=== PATIENT | male | born 1945 | race Caucasian/White ===

== ENCOUNTER 2016-10-01 13:15 | Inpatient (IN) | payer MEDICARE ==
--- NOTE | ~2016-10-01 | HP ---
Unit #: [id number] #: [id number] Patient: VAZQUEZ BRADLEY [id number] [address] [place], [place] [address] [id number] [place] MR#: [id number] NAME: VAZQUEZ BRADLEY. ROOM: 214 Age: 71 Sex: M Admission Date: 10/01/2016 : 1945 Attending Physician: Aries Reina M.D. Primary Care Physician: Jayshree Vela M.D. HISTORY AND PHYSICAL DATE Date I saw the patient is October 02, 2016. REASON FOR ADMISSION Generalized weakness. HISTORY OF PRESENT ILLNESS This is a pleasant 71-year-old male with past medical history significant for morbid obesity, prostate cancer complicated with multiple abdominal problems who presented to the hospital as a direct admission from the oncology office after patient was feeling sick and ill for the last two days. Patient stated that he has been feeling progressively fatigued and weak for the last two days. He had some chills and some dysuria but it was not as bad as many years ago when he was diagnosed with UTI. Patient denied any nausea, vomiting, or diarrhea. No cough. PAST MEDICAL HISTORY 1. COPD. 2. Asthma. 3. History of bladder cancer. PAST SURGICAL HISTORY 1. Urostomy. 2. Left reverse shoulder arthroplasty. FAMILY HISTORY Hypertension. SOCIAL HISTORY Patient quit smoking a long time ago. No history of alcohol or drug abuse. ALLERGIES No known drug allergy. REVIEW OF SYSTEMS A 12-point review of system was obtained and was negative except for what was mentioned in HPI. PHYSICAL EXAMINATION GENERAL: The patient is in no acute distress. HEENT: Atraumatic, normocephalic. PERRLA. EOMI. NECK: Supple. No JVD. No lymphadenopathy. CHEST: Very few wheezing but no rhonchi. Unit #: [id number] #: [id number] Patient: VAZQUEZ BRADLEY HEART: S1, S2. No murmur, gallops, or rubs. ABDOMEN: Soft, nontender. Bowel sounds are positive. No hepatosplenomegaly. EXTREMITIES: No edema or cyanosis. SKIN: No rashes. CENTRAL NERVOUS SYSTEM: Awake, alert. Oriented x3. No focal motor/sensory deficits. DIAGNOSTIC STUDIES LABORATORY: Lactic acid 1.9. Creatinine 2.5, sodium 134. White blood count 17, hemoglobin 8. ASSESSMENT 1. Urinary tract infection. 2. Generalized fatigue. 3. Anemia, chronic. 4. Leukocytosis. 5. Hyponatremia. 6. Acute on chronic kidney disease. 7. Morbid obesity. 8. Hypertension. 9. History of prostate cancer. PLAN 1. Will continue patient on IV hydration. Lactic acid is normal. 2. Rocephin pending culture. 3. Urology consult per patient request. 4. Pain management. 5. Deep venous thrombosis prophylaxis. Dictated by Kimberley Alba TD: 10/02/2016 12:12 JOB #: [id number] HISTORY AND PHYSICAL Page 1 of 1 X WILLY ROMERO MD X HISTORY AND PHYSICAL
--- NOTE | ~2016-10-01 | CO ---
Unit #: [id number] #: [id number] Patient: VAZQUEZ BRADLEY [id number] [address] [address] [id number] I MR#: [id number] NAME: VAZQUEZ BRADLEY. ROOM: 214 Age: 71 Sex: M Admission Date: 10/01/2016 : 1945 Attending Physician: Aries Reina M.D. Primary Care Physician: Jayshree Vela M.D. Requesting Physician: Aries Reina M.D. CONSULTATION REPORT CHIEF COMPLAINT Weakness. REASON FOR CONSULTATION History of prostate cancer, recurrent urinary tract infections and weakness. HISTORY OF PRESENT ILLNESS The patient is a 71-year-old male who is well known to me. He underwent brachytherapy for prostate cancer in the distant past. He also underwent a transurethral resection of his prostate and developed severe incontinence and prostatic stones. He ultimately underwent a ileal conduit urinary diversion. He did not undergo a cystectomy. The patient presents with a three to four-day history of increasing weakness. He is not having any flank pain. He is having difficulty standing. He states that his urine has been more cloudy through his urostomy. PAST MEDICAL HISTORY 1. Prostate cancer. 2. Asthma. 3. Chronic obstructive pulmonary disease. PAST SURGICAL HISTORY 1. Ileal conduit urinary diversion. 2. Transurethral resection of prostate. 3. Gastric bypass. 4. Shoulder replacement. 5. Resection of abdominal wall. SOCIAL HISTORY Negative for alcohol. Previous history of tobacco use. ALLERGIES Documented in the chart. CURRENT MEDICATIONS Documented in the chart. REVIEW OF SYSTEMS Twelve point review of systems was performed and was positive for weakness and cloudy urine. Negative for diarrhea. Negative for fevers. Negative for flank pain. PHYSICAL EXAMINATION Unit #: [id number] #: [id number] Patient: VAZQUEZ BRADLEY GENERAL: Well-developed white male in no acute distress. VITALS: Temperature 97.7, blood pressure 123/77, pulse 83, respiratory rate 18. HEENT: Normocephalic, atraumatic. Extraocular muscles intact. NECK: Supple. No lymphadenopathy. No nuchal rigidity. CHEST: Unlabored respirations with symmetric chest rise. ABDOMEN: Soft, nontender and nondistended. He has a urostomy in his right lower quadrant which is pink and draining clear urine. EXTREMITIES: Gait is normal. Pulse is regular rate and rhythm radially. No clubbing, cyanosis or edema. DIAGNOSTIC STUDIES IMAGING: None. LABORATORY: Creatinine 2.5, baseline is 1.9 to 2.3, white blood cell count 17,000. Urinalysis was not performed. ASSESSMENT/PLAN Weakness and history of prostate cancer. The patient is being treated empirically for possible urinary tract infection. His urine culture is pending. Blood cultures are pending as well. Will continue the Rocephin. Will check a CT of his chest, abdomen and pelvis to evaluate for possible causes for his weakness and leukocytosis. We appreciate the opportunity in his care. Dictated by... Kameron Avelar M.D. GUS/gz TD: 10/02/2016 13:08 JOB #: [id number] CONSULTATION REPORT Page 1 of 1 X Kameron Avelar MD X CONSULTATION REPORT
--- NOTE | ~2016-10-01 | CR72 ---
[facility] A Service of [facility] & [facility] RADIOLOGY TEXT RESULTS PATIENT: VAZQUEZ BRADLEY LOCATION: A : [birth year] UNIT #: [id number] AGE: [address]: Aries Reina MD SEX: M ORDER DR: [id number] [facility] [address] [facility]. [place], [place] [address] [id number] I MR#: [id number] Acc #: [id number] NAME: VAZQUEZ BRADLEY. : 1945 SEX: M STUDY DATE/TIME: 10/06/2016 21:18 UNIT: [facility] ROOM: [facility] STUDY DESCRIPTION: CR Chest Single View Portable Attending Physician: Aries Reina M.D. Ordering Physician: Aries Reina M.D. Primary Care Physician: Jayshree Vela M.D. MEDICAL IMAGING REPORT This report is preliminary unless electronic signature is present EXAM Portable chest HISTORY Short of air. Weakness for 5 days. FINDINGS Moderate elevation of the left hemidiaphragm is similar to 12/21/2012. Mild cardiac enlargement is accentuated by low lung volumes. Pulmonary vascularity is normal. Calcified mediastinal and right hilar nodes. Mild linear atelectasis or scarring in the left base. Bilateral shoulder prostheses. IMPRESSION No acute findings. Moderate chronic elevation of the left hemidiaphragm. No evidence of active disease in the lungs. Dictated by... Santana Witt M.D. THIS IS AN ELECTRONICALLY VERIFIED REPORT Santana Witt M.D. at 10/06/2016 11:18 PM DFL/pcl TD: 10/06/2016 23:02 JOB #: [id number] MEDICAL IMAGING REPORT Page 1 of 1 COPY
--- NOTE | ~2016-10-01 | CR4 ---
[facility] A Service [facility] RADIOLOGY TEXT RESULTS PATIENT: VAZQUEZ BRADLEY LOCATION: CICCU3 CICCU3-23 : [birth year] UNIT #: [id number] AGE: [address]: Aries Reina MD SEX: M ORDER DR: [id number] [facility] [address] [facility]. [place], [place] [address] [id number] I MR#: [id number] Acc #: [id number] NAME: VAZQUEZ BRADLEY. : 1945 SEX: M STUDY DATE/TIME: 10/04/2016 19:51 UNIT: C2A ROOM: [facility] STUDY DESCRIPTION: CR Abdomen Flat Upright or Dec Attending Physician: Aries Reina M.D. Ordering Physician: Farrukh Colby M.D. Primary Care Physician: Jayshree Vela M.D. MEDICAL IMAGING REPORT This report is preliminary unless electronic signature is present EXAM Flat and upright views of the abdomen INDICATION Follow up renal calculus. PROCEDURE Supine and upright views of the abdomen. COMPARISON CT from 10/02/2016. FINDINGS Previously demonstrated right UPJ stone is not seen. Moderate colonic stool. No free air. Nonobstructed pattern. Phlebolith in the right hemipelvis. There is stable diastasis of the pubic symphysis. IMPRESSION 1. The right UPJ stone is not seen. 2. Other findings as above. Dictated by... Saurabh Oliver M.D. THIS IS AN ELECTRONICALLY VERIFIED REPORT Saurabh Oliver M.D. at 10/08/2016 7:05 AM DESEAND/radha TD: 10/05/2016 08:36 JOB #: [id number] MEDICAL IMAGING REPORT [facility] A [facility] RADIOLOGY TEXT RESULTS PATIENT: VAZQUEZ BRADLEY LOCATION: CICCUDa CICCU3-23 : [birth year] UNIT #: [id number] AGE: [address]: Aries Reina MD SEX: M ORDER DR: Page 1 of 1 COPY
--- NOTE | ~2016-10-01 | XA157 ---
[facility] A Service of [facility] & [facility] RADIOLOGY TEXT RESULTS PATIENT: VAZQUEZ BRADLEY LOCATION: [address] : [birth year] UNIT #: [id number] AGE: [address]: Aries Reina MD SEX: M ORDER DR: [id number] [place] [id number] [facility]. [place], [place] [address] [id number] I MR#: [id number] Acc #: [id number] NAME: VAZQUEZ BRADLEY. : 1945 SEX: M STUDY DATE/TIME: 10/06/2016 10:10 UNIT: CICCU3 ROOM: [facility] STUDY DESCRIPTION: XA Nephrostogram Attending Physician: Aries Reina M.D. Ordering Physician: Jared Moody M.D. Primary Care Physician: Jayshree Vela M.D. MEDICAL IMAGING REPORT This report is preliminary unless electronic signature is present EXAM Nephrostomy tube placement. INDICATION The patient is a 71-year-old man with an obstructing stone at the right ureteropelvic junction which was identified on a prior study from October 02, 2016. He has been referred for nephrostomy tube placement PROCEDURE The procedure was explained to the patient including risks, benefits, potential complications, potential for alternative forms of treatment. Informed consent was obtained and prior to initiating the procedure, a formal time-out procedure was performed. Using all elements of maximal sterile barrier technique, including hand hygiene, caps, sterile gowns, and gloves and masks, the back was prepped with 2% chlorhexidine for cutaneous antisepsis and covered with a large sterile sheet. Real time ultrasound guidance was used to localize the right kidney which of note does not appear particularly hydronephrotic. A hard copy ultrasound image was obtained. After local anesthesia with 1% Xylocaine, I made several attempts to access the right renal collecting system under direct sterile sonographic guidance. It did appear that I was entering a mildly dilated ashley. I was only able to aspirate a small amount of very thick, purulent appearing material, which I suspect reflected infection material within the patient's collecting system. However, when contrast was injected, there was no opacification of a normal appearing collecting system. I did attempt to advance a wire through the needle but only a small amount could be advanced before it coiled back on itself. I made several more attempts to access the patient's kidney and again, was never able to demonstrate a normal appearing collecting system. At this point, the procedure was terminated. We will obtain a CT scan for further evaluation of the patient's anatomy with further management pending this study. This was discussed with Dr. SHELTON. [facility] A Service of [facility] RADIOLOGY TEXT RESULTS PATIENT: VAZQUEZ BRADLEY LOCATION: [address] : [birth year] UNIT #: [id number] AGE: [address]: Aries Reina MD SEX: M ORDER DR: Heidy at the termination of the procedure. The patient did receive conscious sedation consisting of 5 mg of Versed and 175 mcg of fentanyl and continuous monitoring was provided for a total of 80 minutes by IVR nurse. Total fluoroscopy time was 3.4 minutes and a single fluoroscopic image was obtained. IMPRESSION Unsuccessful attempted right nephrostomy tube placement. Upon accessing what I thought was probably a dilated ashley under direct sterile sonographic guidance, I was able to aspirate some thick purulent-appearing material but contrast injection did not show definitive opacification of a collecting system. I am uncertain if I truly accessed the patient's collecting system or if perhaps the patient has a perinephric infected fluid collection. CT of the abdomen and pelvis has been ordered to allow for further planing. Ultrasound and fluoroscopy were used during this procedure and permanent images were saved. Dictated by... Sangeetha Farah M.D. THIS IS AN ELECTRONICALLY VERIFIED REPORT Sangeetha Farah M.D. at 10/07/2016 5:21 PM JAVIER/olegario TD: 10/07/2016 09:42 JOB #: [id number] MEDICAL IMAGING REPORT Page 1 of 1 COPY
--- NOTE | ~2016-10-01 | CT4 ---
[facility] A Service of [facility] & [facility] RADIOLOGY TEXT RESULTS PATIENT: VAZQUEZ BRADLEY LOCATION: [facility] CICCU3-23 : [birth year] UNIT #: [id number] AGE: [address]: Aries Reina MD SEX: M ORDER DR: [id number] [facility] [address] [facility]. [place], [place] [address] [id number] I MR#: [id number] Acc #: [id number] NAME: VAZQUEZ BRADLEY. : 1945 SEX: M STUDY DATE/TIME: 10/06/2016 15:54 UNIT: C2A ROOM: 214 STUDY DESCRIPTION: CT Abd and Pelv Wo Cont Attending Physician: Aries Reina M.D. Ordering Physician: Sangeetha Farah M.D. Primary Care Physician: Jayshree Vela M.D. MEDICAL IMAGING REPORT This report is preliminary unless electronic signature is present EXAM CT of the abdomen and pelvis without contrast. INDICATION This patient is a 71-year-old man who was recently noted to have mild right-sided hydronephrosis which was secondary to an obstructing stone at the right ureteropelvic junction. He underwent attempted nephrostomy tube placement today. However, when the lower pole was accessed, there was spontaneous drainage of purulent appearing urine but injection of contrast did not show a normal appearing collecting system. This exam was requested to reassess the patient's anatomy and assess for possible perinephric collection. TECHNIQUE Axial CT imaging was obtained from the dome of the diaphragm through the symphysis pubis. No oral or intravenous contrast material was administered. This CT exam was performed with one or more of the following radiation dose reduction techniques: automatic exposure control, adjustment of mA and/or kV according to patient size, and iterative reconstruction. FINDINGS Images through the lung bases demonstrate some bibasilar atelectasis. There is a small hiatal hernia. Proximal small bowel is within normal limits as are the adrenal glands and spleen. Pancreas is mildly atrophic. No focal hepatic lesions are identified, and the patient does have cholelithiasis. This patient does appear to have contrast material within the right renal collecting system with no extravasated contrast material seen around the kidney, although, the patient does have some foci of gas in keeping with recent access attempts. Left kidney again has multiple areas of cortical thinning likely reflecting sequela of prior insults. There is a right lower quadrant ileal conduit with a fat-containing parastomal hernia noted. The patient also has a right paramedian ventral STS. [facility] A Service of [facility] RADIOLOGY TEXT RESULTS PATIENT: VAZQUEZ BRADLEY LOCATION: [facility] CICCU3-23 : [birth year] UNIT #: [id number] AGE: [address]: Aries Reina MD SEX: M ORDER DR: hernia which contains loops of bowel without evidence of obstruction. Small bilateral fat containing inguinal hernias are seen. Low-attenuation lesion is noted arising from the superior pole of the right kidney which I suspect actually reflects a cyst, as its appearance is not significantly changed when compared to the prior exam. The patient is status post cystectomy. Postsurgical changes are seen within the shoulders bilaterally. No aggressive osseous abnormalities are seen. IMPRESSION 1. Patient does appear to have some contrast material within the right renal collecting system, with no definite extravasated contrast material. No discrete drainable fluid collection is seen. There is loss of the normal fat plane between the right kidney and the liver. I am uncertain if this reflects some fluid within this area. The possibility of an underlying lesion is not excluded, but really cannot be accurately assessed upon this examination. Short-term followup exam is suggested to document resolution. 2. Areas of cortical thinning identified within the left kidney likely reflecting sequela of prior insults. 3. Cholelithiasis. 4. Right lower quadrant ileal conduit with associated parastomal fat-containing hernia. 5. Right paramedian ventral hernia containing bowel without evidence of obstruction. 6. Also noted but not mentioned in the report is chronic diastases of the symphysis pubis which contains some gas. Similar findings have been present on prior studies. Dictated by... Sangeetha Farah M.D. THIS IS AN ELECTRONICALLY VERIFIED REPORT Sangeetha Farah M.D. at 10/07/2016 5:25 PM JAVIER/mima TD: 10/06/2016 18:56 JOB #: [id number] MEDICAL IMAGING REPORT Page 1 of 1 COPY
--- NOTE | ~2016-10-01 | CT4 ---
[facility] A Service of [facility] & [facility] RADIOLOGY TEXT RESULTS PATIENT: VAZQUEZ BRADLEY LOCATION: C2A : [birth year] UNIT #: [id number] AGE: [address]: Aries Reina MD SEX: M ORDER DR: [id number] [facility] [address] [facility]. [place], [place] [address] [id number] I MR#: [id number] Acc #: [id number] NAME: VAZQUEZ BRADLEY. : 1945 SEX: M STUDY DATE/TIME: 10/02/2016 13:39 UNIT: C2A ROOM: 214 STUDY DESCRIPTION: CT Abd and Pelv Wo Cont Attending Physician: Aries Reina M.D. Ordering Physician: Kameron Avelar M.D. Primary Care Physician: Jayshree Vela M.D. MEDICAL IMAGING REPORT This report is preliminary unless electronic signature is present EXAM CT of the abdomen and pelvis without contrast 10/02/2016 INDICATIONS Left lower quadrant pain for 2 days as well as leukocytosis. TECHNIQUE Axial CT images were obtained from the dome of the diaphragm to the symphysis pubis. No oral or intravenous contrast material was administered. Patient's CT of the chest be dictated separately. This CT exam was performed with one or more of the following radiation dose reduction techniques: automatic exposure control, adjustment of mA and/or kV according to patient size, and iterative reconstruction. FINDINGS This patient has mild right-sided hydronephrosis, which is secondary to a 1.1 cm stone seen within the proximal right ureter. Distal to this the ureter is decompressed. There is a heterogeneous appearance to the right renal parenchyma. The possibility of pyelonephritis is not excluded, especially given the presence of some inflammatory stranding around the kidney. There is an exophytic low attenuation structure arising from the superior pole of the right kidney which could potentially may reflect a cyst but is new when compared to prior exam. Patient is noted to have extensive cortical thinning within the left kidney likely reflecting the sequela of prior insults. Calcification seen within the inferior pole of the right kidney may reflect a cortical calcification. Patient appears to be status post gastrojejunostomy without any evidence of obstruction. Calcified granulomata are seen within the spleen, pancreas is atrophic. Multiple stones are identified within the gallbladder without any evidence of acute cholecystitis. There is some inflammatory stranding which is seen involving the margin of the right lobe of the liver as well as the junction of the second and third portions of the duodenum. This is [facility] A Service of [facility] / [facility] RADIOLOGY TEXT RESULTS PATIENT: VAZQUEZ BRADLEY LOCATION: A 214- : [birth year] UNIT #: [id number] AGE: [address]: Aries Reina MD SEX: M ORDER DR: favored to be secondary involvement due to the inflammation of the kidney. The patient does have some enlarged retroperitoneal nodes for example a right paraaortic node measures about 1.2 cm. There is a right lower quadrant ileal conduit. Patient is noted to have a fat-containing parastomal hernia which has increased when compared to the prior examination. There is some mild prominence of the left renal collecting system not significantly changed when compared to the prior study and likely related to the ileal conduit. The patient has a right paramedian bowel containing ventral hernia without any evidence of obstruction. This is new when compared to the prior examination. There is atherosclerotic involvement of the abdominal aorta. Postsurgical changes are seen within the pelvis. I think the patient is status post cystectomy and prostatectomy. Correlation with operative history is recommended. Previously identified fluid collection within the pelvis has resolved. There is some air seen anteriorly within the pelvis though at the symphysis pubis this was also present on the prior study and is probably not significantly changed. Small bilateral fat containing inguinal hernias are noted. Review of bony windows demonstrates extensive degenerative changes involving the symphysis pubis which appears abnormally widened and sclerotic. Please correlate with history. IMPRESSION 1. This patient has mild right-sided hydronephrosis secondary to a 1.1 cm stone located at the right ureteropelvic junction. There is heterogeneous attenuation of the right kidney with extensive perinephric stranding. The possibility of pyelonephritis should be considered. There is low attenuation exophytic structure associated with the superior pole of the right kidney which may simply reflect a cyst. The possibility of small abscess or other perinephric collection is not excluded. 2. The patient is status post cystectomy with ileal conduit seen within the right lower quadrant. There is an associated fat-containing parastomal hernia which has increased when compared to the prior exam. 3. There is mild prominence of the left renal collecting system likely related to the ileal conduit. 4. There is a right paramedian ventral hernia which contains bowel without evidence of obstruction. 5. Cholelithiasis. 6. Chronic diastases of the symphysis pubis with soft tissue thickening and bubbles of gas again noted within this area. Correlation with history is suggested. 7. Also noted but not mentioned report is a small hiatal hernia. 8. Areas of cortical thinning identified within the left kidney likely reflecting sequela of prior insults. Please see the body of the report for any other additional incidental findings. Patient's CT of the chest will be dictated separately. [facility] A Service of [facility] / [facility] RADIOLOGY TEXT RESULTS PATIENT: VAZQUEZ BRADLEY LOCATION: [facility] 214- : 47 UNIT #: [id number] AGE: [address]: Aries Reina MD SEX: M ORDER DR: Dictated by... Sangeetha Farah M.D. THIS IS AN ELECTRONICALLY VERIFIED REPORT Sangeetha Farah M.D. at 10/05/2016 4:51 PM JAVIER/jessee TD: 10/02/2016 17:26 JOB #: [id number] MEDICAL IMAGING REPORT Page 1 of 1 COPY
--- NOTE | ~2016-10-01 | CO ---
Unit #: [id number] #: [id number] Patient: VAZQUEZ BRADLEY [id number] [address] [place], [place] [address] [id number] MR#: [id number] NAME: VAZQUEZ BRADLEY. ROOM: [facility] Age: 71 Sex: M Admission Date: 10/01/2016 : 1945 Attending Physician: Aries Reina M.D. Primary Care Physician: Jayshree Vela M.D. Consultation Date: 10/06/2016 CONSULTATION REPORT REASON FOR CONSULTATION Elevated creatinine level. HISTORY OF PRESENT ILLNESS The patient is a 71-year-old white male with a past medical history of obesity, prostate cancer, status post cystectomy with ileal conduit formation. The patient admitted with worsening chills and noted to have stranding on the right perinephric area with possible abscess and right hydronephrosis with a stone. He is being followed by Urology and is getting a repeat CT scan. The creatinine level is noted to be 2.2 with previous levels ranging between 1.7 and 2.2 in the last year and a half. The patient had an echocardiogram in 2014 with ejection fraction of around 65% and normal right ventricular systolic function. No history of congestive heart failure. Chest CT scan does not reveal any pulmonary edema. There is no significant edema. No noted NSAIDs in his medications. No recent IV contrast. PAST MEDICAL HISTORY COPD, asthma, history of bladder cancer/prostate cancer, status post right ileal conduit and prostatectomy, left shoulder arthroplasty. FAMILY HISTORY Hypertension. No history of end-stage renal disease in family. SOCIAL HISTORY The patient has several pack year history of smoking but quit for several years. The patient does not drink. ALLERGIES No known drug allergies. REVIEW OF SYSTEMS Not reliably available currently. PHYSICAL EXAMINATION VITAL SIGNS: Most recent temperature is 98.7. Heart rate 85. Blood pressure 118/55. Oxygen saturation 98%. HEENT: Head is atraumatic. Extraocular movements are intact. Sclerae are anicteric. NECK: Supple. There is no elevation of the JVD. CHEST: Clear. Air entry is equal bilaterally. Breathing is vesicular in nature. CARDIOVASCULAR: S1, S2 audible. There is no S3, S4. ABDOMEN: Soft. There is no organomegaly. No guarding. No rigidity. No Unit #: [id number] #: [id number] Patient: VAZQUEZ BRADLEY rebound tenderness. There is a stoma from his ileal conduit. It appears clean with clear looking urine in the tube. EXTREMITIES: There is trace edema. CENTRAL NERVOUS SYSTEM: Motor system is intact. DIAGNOSTIC STUDIES LABORATORY: Sodium 132, potassium 4.8, chloride 97, CO2 24, BUN 36, creatinine 2.3, calcium 9, lactic acid 2.2. WBC 5.7, hemoglobin and hematocrit 8.5 and 27.9 with platelet count 572. The urine cultures are pending. IMPRESSION 1. LORA. Possible ATN secondary to underlying infection. Pyelonephritis. Urology is following. The patient has been started on cefepime. Follow urine cultures. 2. Right hydro on the most recent CT. Repeat CT is being done. 3. Hyponatremia likely secondary to hemodynamic stimulation of ADH. 4. Anemia, likely underlying chronic kidney disease. 5. CKD likely stage 3 of chronic kidney disease secondary to hypertensive nephrosclerosis. We will consider workup for prior proteinemia. 6. Noted right ureteric stone. Urology is following. 7. Right hydronephrosis on CT scan. Follow Urology plans. 8. Hypertension. We will follow the patient (1) . We will hydrate the patient and follow the renal function. No acute need for dialysis. Expect renal function to stabilize. Dictated by... Kimberley Wright TD: 10/07/2016 07:55 JOB #: [id number] CONSULTATION REPORT Page 1 of 1 X Daniel Barton MD X CONSULTATION REPORT
--- NOTE | ~2016-10-01 | EKG ---
PATIENT: VAZQUEZ BRADLEY UNIT #: [id number] Ventricular Rate: 101 BPM Atrial Rate: 101 BPM P-R Interval: 168 ms QRS Duration: 72 ms Q-T Interval: 350 ms QTC Calculation(Bezet): 453 ms P Denton: 46 degrees Calculated R [place]: -16 degrees Calculated T [place]: 81 degrees Diagnosis Line: Sinus tachycardia Diagnosis Line: Possible Lateral infarct , new Diagnosis Line: Inferior-posterior infarct (cited on or before Diagnosis Line: 12-SEP-2014) Diagnosis Line: * ACUTE LA Diagnosis Line: Abnormal ECG Diagnosis Line: When compared with ECG of 12-SEP-2014 11:43, Diagnosis Line: Acute Lateral infarct is now Present Diagnosis Line: acute inferoposterior infarct is now present Diagnosis Line: Confirmed by KARLOS TALBERT MD ([id number]) on 10/08/2016 Diagnosis Line: 11:08:43 PM INTERPRETING MD: GALI MONTIEL
--- NOTE | ~2016-10-01 | CT57 ---
[facility] A Service of [facility] RADIOLOGY TEXT RESULTS PATIENT: VAZQUEZ BRADLEY LOCATION: [facility] : [birth year] UNIT #: [id number] AGE: [address]: Aries Reina MD SEX: M ORDER DR: [id number] [facility] [address]. [place], [place] [address] [id number] MR#: [id number] Acc #: [id number] NAME: VAZQUEZ BRADLEY. : 1945 SEX: M STUDY DATE/TIME: 10/02/2016 13:39 UNIT: [facility] ROOM: 214 STUDY DESCRIPTION: CT Chest Wo Cont Attending Physician: Aries Reina M.D. Ordering Physician: Kameron Avelar M.D. Primary Care Physician: Jayshree Vela M.D. MEDICAL IMAGING REPORT This report is preliminary unless electronic signature is present EXAM CT chest without contrast. INDICATION Weakness, shortness of air for the past [address] of the chest. This CT exam was performed with one or more of the following radiation dose reduction techniques: automatic exposure control, adjustment of mA and/or kV according to patient size, and iterative reconstruction. COMPARISON STUDIES 03/04/2015 FINDINGS There is atelectasis or scarring at the left lung base. Otherwise the lungs are clear. No adenopathy. Coronary artery calcification. Abnormal appearance of the left kidney, which is inseparable from the adjacent liver. No aggressive appearing bone lesion. IMPRESSION 1. No acute findings in the chest. Stable chronic atelectasis at the left lung base. 2. The right kidney is not well included. The visualized upper pole appears to be expanded and is inseparable from the adjacent liver. Recommend evaluation with contrast-enhanced CT of the abdomen and pelvis. Dictated by... [facility] A Service of [facility] RADIOLOGY TEXT RESULTS PATIENT: VAZQUEZ BRADLEY LOCATION: [facility] : [birth year] UNIT #: [id number] AGE: [address]: Aries Reina MD SEX: M ORDER DR: Saurabh Oliver M.D. THIS IS AN ELECTRONICALLY VERIFIED REPORT Saurabh Oliver M.D. at 10/05/2016 7:45 AM ARRON/olegario TD: 10/02/2016 16:49 JOB #: [id number] MEDICAL IMAGING REPORT Page 1 of 1 COPY
[~2016-10-01 13:15] MED LIST: ASPIRIN81 MG PO; CERTAGEN PO; CIPRO PO; DIABETES MED; HYDROCODON-ACE1 EAC5 PO; HYDROCODON-ACE1 EAC7 PO; LEVAQUIN PO; LORTAB 10-5001 EACH PO; MELATONIN3 MG PO; NORVASC PO; OMNICEF PO; PERCOCET 5/321 UDTAB PO; PYRIDIUM PO; ROXICODONE5 MG DOB; SINGULAIR PO; TYLENOL PM PO; TYLENOL325 M1 PO; UNISOM50 MG PO; VICODIN PO; VIT B-12 PO
[2016-10-01] MEDS ORDERED: HYDROCODON-ACE1 EAC5 PO (18:41)
[2016-10-01] MEDS ORDERED: SINGULAIR PO (18:41)
[2016-10-01] MEDS ORDERED: DOCUSATE SODIU100 MG PO (18:42)
[2016-10-01] MEDS ORDERED: UNISOM50 M1 PO (18:42)
[2016-10-01] MEDS ORDERED: MUCINEX DM ER1 EAC1 PO (18:44)
[2016-10-01] MEDS ORDERED: MELATONIN5 M1 PO (18:44)
[2016-10-01] MEDS ORDERED: POTASSIUM99 M1 PO (19:17)
[2016-10-01 20:20] LABS: HEMATOCRIT 26.7 % (38.0-50.0); MEAN CELL VOLUME 76.2 FL (83-96); MEAN CORPUSCULAR HEMOGLOBIN 22.7 PG (28-34); MEAN CORPUSCULAR HGB CONC 29.9 g/dL (30-36); RED BLOOD COUNT 3.51 X10e (3.90-5.60); RED CELL DISTRIBUTION WIDTH 18.3 % (11.0-15.5)
[2016-10-01 20:30] LABS: BUN/CREATININE RATIO 17.2; CALCIUM SERUM 8.9 mg/dL (8.4-10.2); CREATININE SERUM 2.5 mg/dL (0.6-1.4); GLOM FILT RATE Estimated 25.3 mL/min (>60); POTASSIUM 4.7 mmol/L (3.5-5.1)
[2016-10-03 06:23] LABS: HEMATOCRIT 25.6 % (38.0-50.0); HEMOGLOBIN 7.7 gm/dL (13.0-16.0); MEAN CELL VOLUME 74.9 FL (83-96); MEAN CORPUSCULAR HEMOGLOBIN 22.4 PG (28-34); MEAN PLATELET VOLUME 6.4 FL (6.5-11.5); RED BLOOD COUNT 3.42 X10e (3.90-5.60); WHITE BLOOD COUNT 20.1 X10e3 (4.0-10.5)
[2016-10-03 07:37] LABS: BUN/CREATININE RATIO 13.6; CALCIUM SERUM 8.7 mg/dL (8.4-10.2); CREATININE SERUM 2.5 mg/dL (0.6-1.4); GLOM FILT RATE Estimated 25.3 mL/min (>60); POTASSIUM 5.1 mmol/L (3.5-5.1)
[2016-10-04 05:15] LABS: HEMATOCRIT 24.7 % (38.0-50.0); HEMOGLOBIN 7.4 gm/dL (13.0-16.0); MEAN CORPUSCULAR HEMOGLOBIN 22.8 PG (28-34); MEAN CORPUSCULAR HGB CONC 29.9 g/dL (30-36); MEAN PLATELET VOLUME 7.4 FL (6.5-11.5); RED BLOOD COUNT 3.26 X10e (3.90-5.60); RED CELL DISTRIBUTION WIDTH 17.8 % (11.0-15.5); WHITE BLOOD COUNT 17.5 X10e3 (4.0-10.5)
[2016-10-04 05:50] LABS: BUN/CREATININE RATIO 16.08; CALCIUM SERUM 8.6 mg/dL (8.4-10.2); CREATININE SERUM 2.3 mg/dL (0.6-1.4); GLOM FILT RATE Estimated 27.9 mL/min (>60)
[2016-10-04 05:57] LABS: POTASSIUM 5.5 mmol/L (3.5-5.1)
[2016-10-05 07:03] LABS: HEMATOCRIT 26.3 % (38.0-50.0); HEMOGLOBIN 7.8 gm/dL (13.0-16.0); MEAN CELL VOLUME 75.9 FL (83-96); MEAN CORPUSCULAR HEMOGLOBIN 22.5 PG (28-34); MEAN CORPUSCULAR HGB CONC 29.6 g/dL (30-36); RED BLOOD COUNT 3.47 X10e (3.90-5.60); WHITE BLOOD COUNT 15.6 X10e3 (4.0-10.5)
[2016-10-05 07:24] LABS: BUN/CREATININE RATIO 16.36; CALCIUM SERUM 8.8 mg/dL (8.4-10.2); CREATININE SERUM 2.2 mg/dL (0.6-1.4); GLOM FILT RATE Estimated 29.5 mL/min (>60); POTASSIUM 4.6 mmol/L (3.5-5.1)
[2016-10-05 08:12] LABS: INR 1.2; PARTIAL THROMBOPLASTIN TIME 29.8 SECONDS (23.5-31.3); PROTHROMBIN TIME (PATIENT) 12.2 SECONDS (9.6-11.5)
[2016-10-06 06:18] LABS: HEMATOCRIT 25.5 % (38.0-50.0); HEMOGLOBIN 7.7 gm/dL (13.0-16.0); MEAN CELL VOLUME 75.1 FL (83-96); MEAN CORPUSCULAR HEMOGLOBIN 22.7 PG (28-34); MEAN CORPUSCULAR HGB CONC 30.2 g/dL (30-36); MEAN PLATELET VOLUME 6.8 FL (6.5-11.5); RED BLOOD COUNT 3.39 X10e (3.90-5.60); WHITE BLOOD COUNT 16.3 X10e3 (4.0-10.5)
[2016-10-06 06:24] LABS: INR 1.1; PARTIAL THROMBOPLASTIN TIME 28.9 SECONDS (23.5-31.3); PROTHROMBIN TIME (PATIENT) 12.1 SECONDS (9.6-11.5)
[2016-10-06 06:53] LABS: ALBUMIN SERUM 2.3 g/dL (3.5-5.0); BILIRUBIN,TOTAL 0.3 mg/dL (0.2-2.0); BUN/CREATININE RATIO 15.45; CALCIUM SERUM 8.8 mg/dL (8.4-10.2); CREATININE SERUM 2.2 mg/dL (0.6-1.4); GLOM FILT RATE Estimated 29.5 mL/min (>60); POTASSIUM 4.9 mmol/L (3.5-5.1)
[2016-10-06 15:32] LABS: HEMATOCRIT 27.9 % (38.0-50.0); HEMOGLOBIN 8.5 gm/dL (13.0-16.0); MEAN CELL VOLUME 74.8 FL (83-96); MEAN CORPUSCULAR HEMOGLOBIN 22.8 PG (28-34); MEAN CORPUSCULAR HGB CONC 30.5 g/dL (30-36); MEAN PLATELET VOLUME 6.4 FL (6.5-11.5); RED BLOOD COUNT 3.73 X10e (3.90-5.60); RED CELL DISTRIBUTION WIDTH 17.8 % (11.0-15.5)
[2016-10-06 15:34] LABS: WHITE BLOOD COUNT 5.7 X10e3 (4.0-10.5)
[2016-10-06 15:52] LABS: BUN/CREATININE RATIO 15.65; CREATININE SERUM 2.3 mg/dL (0.6-1.4); GLOM FILT RATE Estimated 27.9 mL/min (>60); POTASSIUM 4.8 mmol/L (3.5-5.1)
[2016-10-06 17:49] LABS: IRON SERUM 14 ug/dL (45-182); TOTAL IRON BINDING CAPACITY 176 ug/dL (252-460); TRANSFERRIN 125 mg/dL (180-329); TRANSFERRIN SATURATION 8 % (20-50)
== END 2016-10-07 01:05 | DRG 689 ==
LOC: C2A 13:15 → CICCU3 10-07 00:18
PROVIDERS: Internal Medicine; Internal Medicine Pulmonary Disease; Radiology Diagnostic Radiology; Urology
PROC: BT11YZZ Fluoroscopy of Right Kidney using Other Contrast (ICD-10-PCS; principal; 2016-10-06)
PROC: 0T903ZX Drainage of Right Kidney, Percutaneous Approach, Diagnostic (ICD-10-PCS; 2016-10-06)
DX: N39.0 Urinary tract infection, site not specified (principal); I21.11 ST elevation (STEMI) myocardial infarction involving right coronary artery; N17.9 Acute kidney failure, unspecified; E87.1 Hypo-osmolality and hyponatremia; E66.01 Morbid (severe) obesity due to excess calories; Z85.46 Personal history of malignant neoplasm of prostate; Z85.51 Personal history of malignant neoplasm of bladder; J44.9 Chronic obstructive pulmonary disease, unspecified; J45.909 Unspecified asthma, uncomplicated; Z82.49 Family history of ischemic heart disease and other diseases of the circulatory system; Z87.891 Personal history of nicotine dependence; D64.9 Anemia, unspecified; I12.9 Hypertensive chronic kidney disease with stage 1 through stage 4 chronic kidney disease, or unspecified chronic kidney disease; N18.3 Chronic kidney disease, stage 3 (moderate); Z96.612 Presence of left artificial shoulder joint; R53.1 Weakness; E87.5 Hyperkalemia; N13.2 Hydronephrosis with renal and ureteral calculous obstruction
CPT/HCPCS: 71010; 71250; 74020; 74176; 74425; 80048; 80053; 82550; 82728; 82947; 83540; 83550; 83605; 84132; 84484; 85027; 85610; 85730; 86850; 86900; 86901; 86923; 87040; 87086; 93005; C1729; C1769; J0692; J0696; J1644; J1650; J1940; J2250; J2270; J3010; Q9967